=== PATIENT | female | born 1985 | race Asian ===

== ENCOUNTER 2023-05-08 07:12 | Emergency (ER) | payer OTHER ==
[~2023-05-08] VITALS: Ht 162.6 cm; Wt 67.1 kg
[2023-05-08 07:41] VITALS: BP_SYST 119; PULSE 66; RESP 18; TEMP 97; O2SAT 97
[2023-05-08] MEDS ORDERED: PSEU30TA36 PO (09:35)
[2023-05-08] MEDS ORDERED: PRED20TA PO (09:35)
[2023-05-08] MEDS ORDERED: ALBMDI INH (09:35)
== END 2023-05-08 10:10 | disposition home or self-care (01) ==
LOC: SED 07:12
DX: J40 Bronchitis, not specified as acute or chronic (principal); R05.9 Cough, unspecified; R09.81 Nasal congestion; J02.9 Acute pharyngitis, unspecified; Z79.899 Other long term (current) drug therapy; Z20.822 Contact with and (suspected) exposure to COVID-19
CPT/HCPCS: 36415; 71045; 81025; 99284